=== PATIENT | male | born 1990 | race Caucasian/White ===

== ENCOUNTER 2017-11-24 19:26 | Emergency (ER) | payer BC ==
[~2017-11-24] VITALS: Ht 185.4 cm; Wt 122.5 kg
[2017-11-24 19:32] VITALS: Ht 185.4 cm; Wt 122.5 kg
[2017-11-24 22:58] VITALS: BP 128/64
== END 2017-11-24 22:58 | disposition home or self-care (01) ==
LOC: ED 19:26
DX: S09.90XA Unspecified injury of head, initial encounter (principal); S13.9XXA Sprain of joints and ligaments of unspecified parts of neck, initial encounter; S39.012A Strain of muscle, fascia and tendon of lower back, initial encounter; V43.52XA Car driver injured in collision with other type car in traffic accident, initial encounter; Y93.I9 Activity, other involving external motion; Y92.411 Interstate highway as the place of occurrence of the external cause; Y99.8 Other external cause status